=== PATIENT | male | born 1985 | race Caucasian/White ===

== ENCOUNTER 2017-05-21 21:04 | Emergency (ER) | payer BC ==
[2017-05-21 21:20] VITALS: BP 164/83
[2017-05-21] MEDS ORDERED: Ketorolac 60 MG/2 ML SDV IM ONE (21:28)
--- NOTE | 2017-05-21 21:51 | EDM.PDOC ---
ED HPI GENERAL MEDICAL PROBLEM - General Chief Complaint: Fever Stated Complaint: ABSCESS TOOTH/SINUS INFECTION Time Seen by Provider: 05/21/17 21:30 Source of Information: Reports: Patient History Limitations: Reports: No Limitations - History of Present Illness INITIAL COMMENTS - FREE TEXT/NARRATIVE: 31 YO WM presents to ER complaining of fever, nasal congestion and copious nasal discharge. Pt reports he thinks he has a sinus infection. Pt complaining of mild facial pain/pressure but after using nasal spray he developed large amount of nasal discharge prompting ER evaluation. Pt denies any headache but states he does have dental pain when leaning forward. Onset Date: 05/19/17 Duration: Day(s): (3) Location: Reports: Face Quality: Reports: Ache Severity: Mild Improves with: Reports: None Worsens with: Reports: None Associated Symptoms: Reports: Fever/Chills. Denies: Confusion, Chest Pain, Cough, cough w sputum, Nausea/Vomiting, Shortness of Breath Treatments FLASK PUSHER: Reports: NSAIDS Headache Pain Score (Numeric/FACES): 1 - Related Data Allergies Allergy/AdvReac Type Severity Reaction Status Date / Time nicotine patches Allergy blisters, Uncoded 05/21/17 21:36 rash Home Meds: Home Meds diphenhydrAMINE HCl [Unisom] 150 mg PO BEDTIME 10/17/15 [History] Albuterol [Ventolin HFA] 2 puff INH Q4H PRN 05/21/17 [History] Amoxicillin/Clavulanate K [Augmentin 875-125 MG] 1 tab PO BID #20 tablet [Rx] Ibuprofen [Motrin] 600 mg PO Q6H #20 tab 05/21/17 [Rx] Naproxen Sodium [Aleve] 5 tab PO BID 05/21/17 [History] Past Medical History - Past Health History Medical/Surgical History: Denies Medical/Surgical History HEENT History: Reports: Allergic Rhinitis, Impaired Vision, Other (See Below) Other HEENT History: Known caries, allergic rhinitis, and the patient does wear glasses Cardiovascular History: Reports: Arrhythmia, Other (See Below) Other Cardiovascular History: Severe tachycardia secondary to drug overdose at age 17, the patient does not know his cholesterol status Respiratory History: Reports: Bronchitis, Recurrent, COPD, Other (See Below) Other Respiratory History: No previous PFTs with COPD by chest x-ray with as needed albuterol therapy Gastrointestinal History: Reports: Cholelithiasis, Gastritis, GI Bleed, PUD, Other (See Below) Other Gastrointestinal History: Suspected cholelithiasis with no workup to this point, bleeding peptic ulcer at age 13 secondary to NSAIDs Genitourinary History: Reports: Renal Calculus, Other (See Below) Other Genitourinary History: Right-sided Nephrolithiasis with spontaneous passage on 12/31/11 Musculoskeletal History: Reports: None. Denies: Amputation, Fracture, Gout, Osteoarthritis, RA, SLE Neurological History: Reports: Concussion, Head Trauma, Other (See Below) Other Neuro History: Multiple previous head concussions at ages 7, 10, and 13 Psychiatric History: Reports: Addiction, Anxiety, Depression, Psych Hospitalization(s), PTSD, Suicide Attempt, Suicidal Ideation, Other (See Below) Other Psychiatric History: PTSD secondary to her adopted mother's at age 4 and his adoptive father's subsequent alcohol abuse, suicide attempt at about age 15 with inpatient treatment at that time, chronic insomnia secondary to his anxiety and depression Endocrine/Metabolic History: Reports: None. Denies: Diabetes, Type I, Diabetes , Type II, Hypothyroidism, IDDM Hematologic History: Reports: None, Other (See Below) Other Hematologic History: No Blood transfusions despite GI bleed as above Immunologic History: Reports: None. Denies: AIDS, HIV Oncologic (Cancer) History: Reports: None Dermatologic History: Reports: None. Denies: Eczema, Psoriasis - Infectious Disease History Infectious Disease History: Reports: Chicken Pox - Past Surgical History HEENT Surgical History: Reports: Oral Surgery, Other (See Below) GI Surgical History: Reports: Other (See Below) Dermatological Surgical History: Reports: Skin Biopsy, Other (See Below) - Past Imaging History Past Imaging History: Reports: CAT Scan Social & Family History - Family History Family Medical History: Unobtainable (Patient is adopted) Psychiatric: Reports: Anxiety, Depression (Natural mother with anxiety, depression, alcohol abuse, substance abuse, etc.) Oncologic: Reports: Lung (Natural mother with lung cancer with history of tobacco use) - Tobacco Use Smoking Status *Q: Current Every Day Smoker Years of Tobacco use: 21 Packs/Tins Daily: 1 (Maximum use of 2 packs per day) Used Tobacco, but Quit: No Second Hand Smoke Exposure: No - Caffeine Use Caffeine Use: Reports: Soda (3 sodas per day), Tea (Occasional). Denies: Coffee , Energy Drinks - Alcohol Use Days Per Week of Alcohol Use: 0 (No previous DWIs, problems with alcohol abuse, etc.) Number of Drinks Per Day: 0 (He hasn't drunk any alcohol for about 3 years) Total Drinks Per Week: 0 - Recreational Drug Use Recreational Drug Use: Yes Drug Use in Last 12 Months: No Recreational Drug Type: Reports: Amphetamines (Speed) (Illicit drug use between the ages 14 and 17 with inpatient treatment at age 18), Marijuana/Hashish, PCP ( Prash[facility]) Recreational Drug Use Frequency: Not Used In Over 6 Months Recreational Drug Last Use: 2005 - Living Situation & Occupation Living situation: Reports: Single, Alone, Other Occupation: Employed ED ROS ENT - Review of Systems Review Of Systems: See Below Constitutional: Reports: Fever HEENT: Reports: Rhinitis, Sinus Problem Respiratory: Reports: No Symptoms Cardiovascular: Reports: No Symptoms Endocrine: Reports: No Symptoms GI/Abdominal: Reports: No Symptoms : Reports: No Symptoms Musculoskeletal: Reports: No Symptoms Skin: Reports: No Symptoms Neurological: Reports: No Symptoms Psychiatric: Reports: No Symptoms Hematologic/Lymphatic: Reports: No Symptoms Immunologic: Reports: No Symptoms ED EXAM, ENT - Physical Exam Exam: See Below Exam Limited By: No Limitations General Appearance: Alert, WD/WN, No Apparent Distress Eye Exam: Bilateral Eye: EOMI, PERRL Ears: Normal External Exam, Normal Canal, Hearing Grossly Normal, Normal TMs Nose: Nasal Discharge Mouth/Throat: Normal Inspection, Normal Gums, Normal Lips, Normal Oropharynx, Normal Teeth Head: Atraumatic, Normocephalic, Facial Tenderness Neck: Normal Inspection, Supple, Non-Tender, Full Range of Motion Respiratory/Chest: No Respiratory Distress, Lungs Clear, Normal Breath Sounds, No Accessory Muscle Use, Chest Non-Tender Cardiovascular: Normal Peripheral Pulses, Regular Rate, Rhythm, No Edema, No Gallop, No JVD, No Murmur, No Rub GI/Abdominal: Normal Bowel Sounds, Soft, Non-Tender, No Organomegaly, No Distention, No Abnormal Bruit, No Mass Back: Normal Inspection, Full Range of Motion Extremities: Normal Inspection, Normal Range of Motion, Non-Tender, No Pedal Edema, Normal Capillary Refill Neurological: Alert, Oriented, CN II-XII Intact, Normal Cognition, Normal Gait, Normal Reflexes, No Motor/Sensory Deficits Psychiatric: Normal Affect, Normal Mood Skin: Warm, Dry, Intact, Normal Color, No Rash Lymphatic: No Adenopathy Course - Vital Signs Last Recorded V/S: Last Vital Signs Temp 37.9 C 05/21/17 21:13 Pulse 121 H 05/21/17 21:13 Resp 16 05/21/17 21:13 BP 164/83 H 05/21/17 21:13 Pulse Ox 99 05/21/17 21:13 - Orders/Labs/Meds Meds: Medications Discontinued Medications Generic Name Dose Route Start Last Admin Trade Name Rajeshq PRN Reason Stop Dose Admin Ketorolac Tromethamine 60 mg 05/21/17 21:28 Toradol IM 05/21/17 21:29 ONETIME ONE Departure - Departure Time of Disposition: 21:55 Disposition: Home, Self-Care 01 Condition: Good Clinical Impression: Sinusitis Qualifiers: Sinusitis location: maxillary Chronicity: acute Recurrence: non-recurrent Qualified Code(s): J01.00 - Acute maxillary sinusitis, unspecified - Discharge Information Prescriptions: Amoxicillin/Clavulanate K [Augmentin 875-125 MG] 1 tab PO BID #20 tablet Ibuprofen [Motrin] 600 mg PO Q6H #20 tab Instructions: Sinusitis, Adult, [id number] Referrals: PCP,Not In Area [Primary Care Provider] - - Assessment/Plan Assessment:: 1. acute maxillary sinusitis Plan: 1. Augmentin 875mg PO BID 2. Afrin NS BID x 3 days 3. zyrtec 10mg PO AD 4. motrin 600mg PO Q6 5. discharge home 6. follow up in clinic next 48 hours 7. return to ER for worsening symptoms
[2017-05-21] MEDS ORDERED: Amoxicillin/Clavulanate K 875-125 MG Tab PO ONE (21:54)
== END 2017-05-21 22:10 | disposition home or self-care (01) ==
LOC: KA.ED 21:04
DX: J01.00 Acute maxillary sinusitis, unspecified (principal); J44.9 Chronic obstructive pulmonary disease, unspecified; F17.210 Nicotine dependence, cigarettes, uncomplicated; Z88.8 Allergy status to other drugs, medicaments and biological substances
CPT/HCPCS: 96372; 99283; A9270; J1885